=== PATIENT | male | born 1945 | race Caucasian/White ===

== ENCOUNTER → 2017-12-01 | Outpatient (CLI) | payer MEDICARE, MEDICAID ==
--- NOTE | 2017-12-02 10:30 | XCELERA REPORT ---
[address] [address] Lower Extremity Arterial Evaluation Name: RENETTA BARR SR Age: 72 yrs Gender: Male : 1945 Patient Status: Outpatient Patient Location: Study Date: 12/01/2017 03:03 PM Procedure: A color flow and duplex scan of the lower extremity arteries was performed bilaterally with velocity and waveform anaylsis. Ankle brachial indicies performed. Reason For Study: PVD Ordering Physician: ALEXY QIU Performed By: Kelvin Kent Measurements and Calculations Right Left SUPERVISOR [employer] PSV 163.3 140.6 cm/sec Prox PFA PSV -90.5 -91.5 cm/sec Prox SFA PSV -99.3 126.4 cm/sec Mid SFA PSV -113.8 -76.6 cm/sec Dist SFA PSV -73.3 -131.2 cm/sec Prox Pop A PSV 65.0 55.9 cm/sec Dist JACOB PSV 71.7 86.0 cm/sec Dist FORM SETTER HELPER PSV 108.7 126.5 cm/sec Praveen Pedis PSV 64.6 -42.4 cm/sec Right Side Arterial Evaluation Normal velocity and triphasic waveforms noted from the Common Femoral artery to the infrageniculate vessels. 0 % stenosis . Ankle Brachial index is 1.14. Left Side Arterial Evaluation Normal velocity and triphasic waveforms noted from the Common Femoral artery to the infrageniculate vessels. 0 % stenosis . Ankle Brachial index is 1.16. Interpretation Summary No hemodynamically significant lesions in the bilateral lower extremities, on duplex imaging, at rest. : ALEXY QIU > Nick Riggins
== END ==
LOC: SP 13:42
PROVIDERS: ATTEND Podiatrist Foot Surgery
DX: I73.9 Peripheral vascular disease, unspecified (principal)
CPT/HCPCS: 93922; 93925

== ENCOUNTER 2018-03-04 06:23 | Day surgery (SDC) | payer MEDICARE, MEDICAID ==
[~2018-03-04 06:23] MED LIST: CEFAZOLIN 1 GM/D5W RTU 1 GM/50 ML RTUPB IV PRN
[2018-03-04] MEDS ORDERED: BUPIVACAINE HCL 0.5 % INJ/PF 30 ML SDV ONE (07:10)
[2018-03-04] MEDS ORDERED: LIDOCAINE 2% INJ (20 MG/ML) 20 ML MDV ONE (07:10)
[2018-03-04] MEDS ORDERED: LIDOCAINE 2% INJ-PF (20 MG/ML) 10 ML AMPUL ONE (07:20)
[2018-03-04] MEDS ORDERED: MIDAZOLAM 2 MG/2 ML INJ ONE (07:20)
[2018-03-04] MEDS ORDERED: ACETAMINOPHEN 1,000 MG/100 ML RTUPB IV ONE (07:20)
[2018-03-04] MEDS ORDERED: FENTANYL CITRATE INJ/PF 100 MCG/2 ML AMPUL ONE (07:20)
[2018-03-04] MEDS ORDERED: ONDANSETRON HCL INJ/PF 4 MG/2 ML SDV ONE (07:21)
[2018-03-04] MEDS ORDERED: PROPOFOL INJ 200 MG/20 ML VIAL IV ONE (07:21)
[2018-03-04] MEDS: POLYMYXIN B SULFATE INJ 500000 UNIT VIAL ONE ×2 (08:29→08:35)
[2018-03-04] MEDS: NORMAL SALINE INJ/PF 0.9% 10 ML SDV ONE ×2 (08:29→08:35)
[2018-03-04] MEDS: BACITRACIN INJ 50,000 UNIT VIAL ONE ×2 (08:29→08:35)
[2018-03-04] MEDS: BUPIVACAINE INJ/PF LIPOSOME/PF 266 MG/20 ML SDV ONE ×2 (08:30→09:35)
--- NOTE | 2018-03-04 10:45 | SURGICARE DISCHARGE SUMMARY E ---
[facility] Discharge Summary NAME: RENETTA BARR AGE: 72Y ADMITTED: 03/04/2018 DISCHARGED: 03/04/2018 SURGICAL PROCEDURE: Burch bunionectomy with insertion of total Silastic implant, left foot. POSTOPERATIVE DIAGNOSIS: Hallux abductovalgus with degenerative joint disease, left foot. SURGEON: Alexy Qiu DPM MAJOR [employer]PLIANCE [employer]SEMBL[employer] SUPERVISOR: Damion Butcher DPM SUMMARY: The patient was admitted to [facility] with the chief complaint of a painful bunion on his left foot. He had undergone conservative therapy consisting of nonsteroidal anti-inflammatories, but he continued to have pain. The patient desired to have this problem surgically corrected. He underwent the above surgical procedure without any complications and was transferred to the recovery room. He was discharged with a surgical shoe and ice pack, postoperative instructions, and postoperative prescriptions for Percocet 5/325 mg #40, Phenergan 25 mg #20, and cephalexin 500 mg #4. The patient was given a followup appointment in the doctor's office in 1 week. The patient was discharged from [facility]. DICTATING PHYSICIAN: ALEXY QIU D.P.M. [id number] PHY#: [id number] ID: [id number] JOB#: [id number] ACCT: [id number] cc:ALEXY QIU DPM >
--- NOTE | 2018-03-04 11:20 | SURGICARE OPERATIVE REPORT E ---
[facility] Operative Report NAME: RENETTA BARR AGE: 72Y DATE OF SURGERY: 03/04/2018 ROOM: PREOPERATIVE DIAGNOSIS: Hallux abductovalgus, left foot. POSTOPERATIVE DIAGNOSIS: Hallux abductovalgus with degenerative joint disease, left foot. SURGICAL PROCEDURE: Burch bunionectomy with insertion of total Silastic implant, left foot. SURGEON: ALEXY QIU DPM HOSPITAL SALES REPRESENTATIVE: ALANNA DEWEY DPM PROCEDURE: Following induction of IV regional and local anesthesia, the left foot and leg were prepped and draped in the usual sterile manner. A pneumatic tourniquet was placed around the left ankle and inflated to 250 mmHg after exsanguination of the limb via Esmarch bandage. The following surgical procedure was then performed: Burch bunionectomy with insertion of total Silastic implant left foot. Attention was directed to the dorsal aspect of the first metatarsophalangeal joint where an approximately 5 cm dorsal linear incision was made. The incision was deep and via sharp dissection. All bleeders were clamped and bovied as necessary for the purposes of hemostasis. A capsular incision was made in the same manner as the original skin incision and was made medial to the extensor hallucis longus tendon. The capsule was then reflected medially and laterally from the bone. The first metatarsophalangeal joint was then inspected and it was noted that there was an erosion along the midpoint of the first metatarsal head and there was erosion of cartilage at the base of the proximal phalanx. It was determined at this time due to the erosions that the Burch bunionectomy with the implant would be necessary. Attention was directed laterally to the first interspace where utilizing blunt dissection the transverse adductor tendon was identified and sharply incised with tenotomy scissors. Attention was directed back to the medial aspect of the first metatarsal head. Using a Bri sagittal saw, the hypertrophied medial eminence was osteotomized parallel to the long axis of the bone and removed en toto from the wound. It should be noted that the bone was yellow in appearance after it had been cut, that the tendon was yellow, extensor hallucis longus tendon was also yellow in appearance. The attention was then directed to the base of the proximal phalanx where utilizing a [place] sagittal saw the base was osteotomized approximately 1 cm distal to the joint and perpendicular to the bone. It was then removed via sharp dissection. Attention was then directed to the head of the first metatarsal, and utilizing a 1.5 drill bit, a hole was drilled into the head of the first metatarsal. This was also done to the base of the proximal phalanx. Utilizing a Reclutec rasp, the head of the first metatarsal was reamed to accept an implant. Utilizing a *------* reamer, both the distal aspect and the distal reamer was used to ream out the hole to accept the stem of the distal portion of the implant, which was to go into the proximal phalanx and then a size 3 proximal reamer was also used to enlarge the hole to accept the proximal stem of the implant. The #3S sizer was then placed in the joint and an x-ray was taken and it was noted that the first metatarsophalangeal joint was now in a more anatomically correct position. Attention was directed to the tibial and fibular sesamoids and they were freed from soft tissue attachments underlying to the plantar aspect of the first metatarsal head, so they would retract proximally. The dorsal aspect of the first metatarsal head was then rasped smooth utilizing a mygall cross-cut rasp. The area was then flushed with copious amounts of an antibacterial saline solution. Bone wax was applied to the medial aspect of the first metatarsal head. A total Silastic implant with grommets size 3S was then placed across the joint. The capsule was then closed with simple interrupted sutures of 3-0 Vicryl. An x-ray was taken and it was noted that the implant fitted perfectly and that the first metatarsophalangeal joint was in an anatomically correct position. An extensor hallucis longus tendon lengthening was then performed. This was a Z-plasty lengthening, which was then sutured with a running, locking suture of 3-0 FiberWire. The subcutaneous tissue was then coapted and maintained utilizing simple interrupted sutures of 4-0 Vicryl. Then, 20 mL of Exparel were injected subcutaneously along the length of the incision and around the surgical site. The skin was then coapted and maintained utilizing horizontal mattress sutures of 5-0 nylon. The foot was then cleansed utilizing an alcohol foam. A dry sterile dressing was then applied consisting of [place] silk, 4 x 4s, Conform, Kerlix, and Coban. The pneumatic tourniquet was released. It was noted that all digits were warm and viable and the patient was transferred to the recovery room. DICTATING PHYSICIAN: ALEXY QIU D.P.M. [id number] PHY#: [id number] ID: [id number] JOB#: [id number] ACCT: [id number] cc:ALEXY QIU DPM >
--- NOTE | 2018-03-04 11:48 | RADIOLOGY REPORT (SQ) ---
EXAM DESCRIPTION: FOOT LEFT 2 VIEWS; NO CHG FLUORO COMPLETED DATE/TIME: 03/04/2018 10:47 am REASON FOR STUDY: LT FOOT ISIDRO BUNIONECTOMY WITH IMPLANT M20.12 HALLUX VALGUS (ACQUIRED), LEFT FO OT COMPARISON: None. FLUOROSCOPY TIME: 6 seconds 2 images saved to PACS. TECHNIQUE: Intra-operative images acquired during surgical procedure to evaluate progress. NUMBER OF IMAGES: 2 LIMITATIONS: None. FINDINGS: Selected images from osteotomy and joint prosthesis 1st metatarsophalangeal joint. IMPRESSION: IMAGE(S) OBTAINED DURING PROCEDURE. COMMENT: Quality ID [id number]: Final reports for procedures using fluoroscopy that document radiation exp osure indices, or exposure time and number of fluorographic images (if radiation exposure indices are not available) Please consult full operative report of the attending physician for description of the procedure. TECHNICAL DOCUMENTATION: JOB ID: [id number] [employer]- All Rights Reserved Reading location - IP/workstation name: [email or web address]
--- NOTE | 2018-03-04 11:48 | RADIOLOGY REPORT (SQ) ---
EXAM DESCRIPTION: FOOT LEFT 2 VIEWS; NO CHG FLUORO COMPLETED DATE/TIME: 03/04/2018 10:47 am REASON FOR STUDY: LT FOOT ISIDRO BUNIONECTOMY WITH IMPLANT M20.12 HALLUX VALGUS (ACQUIRED), LEFT FO OT COMPARISON: None. FLUOROSCOPY TIME: 6 seconds 2 images saved to PACS. TECHNIQUE: Intra-operative images acquired during surgical procedure to evaluate progress. NUMBER OF IMAGES: 2 LIMITATIONS: None. FINDINGS: Selected images from osteotomy and joint prosthesis 1st metatarsophalangeal joint. IMPRESSION: IMAGE(S) OBTAINED DURING PROCEDURE. COMMENT: Quality ID [id number]: Final reports for procedures using fluoroscopy that document radiation exp osure indices, or exposure time and number of fluorographic images (if radiation exposure indices are not available) Please consult full operative report of the attending physician for description of the procedure. TECHNICAL DOCUMENTATION: JOB ID: [id number] [employer]- All Rights Reserved Reading location - IP/workstation name: [email or web address]
== END 2018-03-04 10:53 | disposition home or self-care (01) ==
LOC: SC 06:23
PROVIDERS: ATTEND Podiatrist Foot Surgery
DX: M20.12 Hallux valgus (acquired), left foot (principal); M19.072 Primary osteoarthritis, left ankle and foot; I10 Essential (primary) hypertension; I51.9 Heart disease, unspecified; E11.9 Type 2 diabetes mellitus without complications; K21.9 Gastro-esophageal reflux disease without esophagitis; Z79.899 Other long term (current) drug therapy; Z88.5 Allergy status to narcotic agent; Z79.82 Long term (current) use of aspirin; Z79.84 Long term (current) use of oral hypoglycemic drugs
CPT/HCPCS: 28292; 82962; 73620; C1776; J2250; J3490 ×6; J0690; J3010; J2405; J2704; J0131; C9290; 01480